=== PATIENT | female | born 1975 | race African-American/Black ===

== ENCOUNTER 2018-06-11 10:03 | Emergency (ER) | payer MEDICAID ==
[~2018-06-11] VITALS: Ht 152.4 cm; Wt 49.9 kg
[2018-06-11 10:20] VITALS: BP 108/78
--- NOTE | 2018-06-11 10:51 | Emergency Room Report ---
History of Present Illness General Chief Complaint: Pain Source: Patient Present Illness HPI This patient c/o pain under right breast today (contrary to triage note.) It is sharp, seems worse with inspiration. There is no n/v, can eat without difficulty , no change in bowels, no fever, no travel, no trauma, no cp, no sob, no (other ) abd pain, no vag d/c, no dysuria. Normal monthly menses but last month heavier than usual. No similar history although patient has been having pain right shoulder for almost a year, is in PT for that, seems to be improving as now she can raise RUE. Patient History Now: No Nursing Documentation-PMH Past Medical History: No History, Except For Hx Diabetes: No - hypothirodism Review of Systems Constitutional: Reports: no symptoms Eye: Reports: no symptoms ENT: Reports: no symptoms Respiratory: Reports: no symptoms Cardiovascular: Reports: no symptoms Gastrointestinal: Reports: no symptoms Genitourinary: Reports: no symptoms Musculoskeletal: Reports: no symptoms Skin: Reports: no symptoms Psychiatric: Reports: no symptoms Neurological: Reports: no symptoms Endocrine: Reports: no symptoms Hematologic/Lymphatic: Reports: no symptoms Allergic: Reports: no symptoms All Other Systems: negative except mentioned in HPI Physical Exam Vital Signs Date Time Temp Pulse Resp B/P (MAP) Pulse Ox O2 Delivery O2 Flow Rate FiO2 06/11/18 10:06 98.4 74 17 110/71 98 Room Air Sp02 EP Interpretation: reviewed, normal General Appearance: normal inspection, well appearing, no apparent distress, alert, GCS 15, non-toxic Head: normocephalic, atraumatic Eyes: bilateral eye normal inspection, bilateral eye PERRL, bilateral eye EOMI ENT: normal ENT inspection, hearing grossly normal, normal pharynx, no angioedema, normal voice, moist mucus membranes Neck: normal inspection, full range of motion, supple, no meningismus, no bony tend Respiratory: normal inspection, lungs clear, normal breath sounds, no rhonchi, no respiratory distress, no retraction, no accessory muscle use, no wheezing Cardiovascular #1: normal inspection, regular rate, rhythm, no edema Gastrointestinal: normal inspection, normal bowel sounds, soft, no mass, non- distended, other - there is no RUQ tenderness at all, no breast tenderness/ mass. there is some mild-moderate right lower/pelvic tenderness Musculoskeletal: gait/station normal, normal range of motion Neurologic: normal inspection, alert, oriented x3, responsive, motor strength/ tone normal Psychiatric: normal inspection, judgement/insight normal, memory normal Suicide Risk Assessment: Suicidal Ideation: No Had intent to initiate attempt: No Pt's plan for suicide attempt: No Has means to complete attempt: No Skin: normal inspection, normal color, no rash, warm/dry Medical Decision Making Diagnostic Impression: Primary Impression: Abdominal pain ER Course There is no ruq abnormality but there is some tenderness right ovarian region. Will check UA, r/o , check US. US abnormality noted. [phone]. They will see patient when she calls. Copy of your test results attached. It is your responsibility to discuss your radiology/lab studies with your doctor. EDs CANNOT diagnose nor manage this finding. Emergency departments do not prescribe medications for chronic conditions. Emergency departments do not prescribe narcotics for chronic conditions. You need to see a primary physician. Look on your Medical card for the doctor/ clinic name and/or phone number to find one. Here are some other options: [facility], [facility], [facility], [facility], [facility]. Last Vital Signs Date Time Temp Pulse Resp B/P (MAP) Pulse Ox O2 Delivery O2 Flow Rate FiO2 06/11/18 10:06 98.4 74 17 110/71 98 Room Air Status: improved Disposition: HOME, SELF-CARE Condition: Stable Patient Instructions: Abdominal Pain, Adult, [id number] Harrison Joshi M.D. Jun 11, 2018 10:51
[2018-06-11 11:20] LABS: APPEARANCE,URINE CLEAR; BILIRUBIN, URINE NEGATIVE (NEGATIVE); COLOR,URINE PALE YELLOW; GLUCOSE, URINE (UA) NEGATIVE (NEGATIVE); KETONES,URINE NEGATIVE (NEGATIVE); LEUKOCYTE ESTERASE ,URINE NEGATIVE (NEGATIVE); NITRITE,URINE NEGATIVE (NEGATIVE); PH,URINE 6 (4.5-8.0); PROTEIN,URINE NEGATIVE (NEGATIVE); UROBILINOGEN,URINE NORMAL MG/DL (0.0-1.0)
--- NOTE | 2018-06-11 12:48 | Diagnostic Imaging Report ---
Indication: 43-year-old female presenting with right lower quadrant pain. Technique: Grayscale and duplex Doppler imaging of the pelvis performed utilizing a transabdominal and endovaginal scan. Comparison: None Findings: On endovaginal ultrasound within the anterior wall of the cervix there is a masslike hypoechoic focus measuring approximately 2.8 x 1.4. The concern would be cervical carcinoma. Further clinical evaluation including colposcopy may be needed. Recommend referral to [facility]. Cervical nabothian cysts are also present. There are multiple small fibroids present within the uterus measuring between 1.3 and 2.5 cm. The endometrium is normal in thickness. There is a thin rim of the intense linear echogenicity, a sign of previous instrumentation. Endometrial thickness is approximately 6 to 7 mm. Uterus measures 8.8 x 8.3 x 4.5 cm. The left ovary is not well seen. The right ovary measures 2.7 x 2 x 1.7 cm and is notable for a dominant cyst measuring about 1.5 cm. There is good dopplerable blood flow within the right ovary. IMPRESSION: Masslike focus anterior wall of the cervix measuring 2.8 x 1.4 cm. The concern is possible cervical carcinoma. Further clinical evaluation is recommended. Left ovary not well evaluated on this examination. Multiple uterine fibroids
[2018-06-11 13:30] VITALS: BP 108/78
== END 2018-06-11 13:30 | disposition home or self-care (01) ==
LOC: EMR 10:40
DX: R10.31 Right lower quadrant pain (principal); M25.511 Pain in right shoulder
CPT/HCPCS: 76830; 76856; 81001; 81025; 99284

== ENCOUNTER 2018-06-18 12:09 | Inpatient (IN) | payer MEDICAID ==
[~2018-06-18] VITALS: Ht 152.4 cm; Wt 49.9 kg
[2018-06-18] MEDS ORDERED: Metoclopramide 10mg/2ml Inj IVP ONE (12:45)
--- NOTE | 2018-06-18 12:46 | Emergency Room Report ---
History of Present Illness General Chief Complaint: General Complaint Source: Patient Present Illness HPI 43-year-old female patient presents ER complaining of nausea, headache, abdominal pain, diarrhea. Reports symptoms present for 3 days, previously seen in ER at [facility] at that time. Denies vomiting. Denies head trauma or injury. Reports no history of migraine. Denies photophobia, phonophobia, dizziness, vertigo. Denies blood in diarrhea. Denies recent travel. states has not taking medication for relief of symptoms. denies fever, chest pain, shortness of breath.denies neck pain. Reports hx of gallbladder dyskinesia. Allergies: Coded Allergies: No Known Allergies (Unverified , 06/18/18) Patient History Past Medical History: see triage record Last Menstrual Period: 06-03 Now: No Reviewed Nursing Documentation: PMH: Agreed; PSxH: Agreed Nursing Documentation-PMH Past Medical History: No Stated History Hx Diabetes: No - hypothirodism Review of Systems All Other Systems: negative except mentioned in HPI Physical Exam Vital Signs Date Time Temp Pulse Resp B/P (MAP) Pulse Ox O2 Delivery O2 Flow Rate FiO2 06/18/18 12:16 97.9 98 18 125/85 98 Room Air Sp02 EP Interpretation: reviewed, normal General Appearance: well appearing, no apparent distress, alert, GCS 15, non- toxic Head: normocephalic, atraumatic Eyes: bilateral eye normal inspection, bilateral eye PERRL ENT: hearing grossly normal, normal pharynx, no angioedema, normal voice, uvula midline, moist mucus membranes Neck: full range of motion Respiratory: lungs clear, normal breath sounds, no rhonchi, no respiratory distress, no accessory muscle use, no wheezing, speaking full sentences Cardiovascular #1: regular rate, rhythm, no edema Gastrointestinal: normal bowel sounds, soft, no mass, non-distended, no guarding, no rebound, tenderness Genitourinary: no CVA tenderness Musculoskeletal: back normal, digits/nails normal, gait/station normal, normal range of motion, non-tender Neurologic: alert, oriented x3, responsive, etcher hand III-XII nml as tested, motor strength/tone normal, SLR negative, sensory intact, cerebellar normal, normal gait, speech normal Skin: no rash Medical Decision Making PA Attestation Dr. Schmidt is my supervising Physician whom patient management has been discussed with. Diagnostic Impression: Primary Impression: Intractable pain Additional Impressions: Yeast infection UTI (urinary tract infection) ER Course Pt presents to ED c/o headache, nausea, abdominal pain, diarrhea. DDX considered but are not limited to migraine, cluster [place], tension [place], meningitis, ICH, UTI, cholecystitis, appendicitis, SBO, colitis. Negative kernig, negative brudzinski, paient afebrile, low suspicion for meningitis. VITAL SIGNS are WNL, patient is afebrile ER COURSE provide with Reglan, Benadryl, Zofran for headache symptoms. CBC and CMP unremarkable UA shows likely infection and yeast, will provide Fluconazole in the ER and Rocephin for UTI. Lipase WNL CT abdomen shows no acute findings, urine fibroids noted, previously seen on ultrasound Patient reports [place] symptoms improved still complaining of abdominal pain. discussed patient with Dr. Schmidt, will admit patient for intractable pain. Admitted to Dr. Fink - Please note that this Emergency Department Report was dictated using [employer] operator technology software, occasionally this can lead to erroneous entry secondary to interpretation by the dictation equipment. Labs Test 06/18/18 12:50 06/18/18 13:26 White Blood Count 5.5 K/UL (4.8-10.8) Red Blood Count 4.40 M/UL (4.20-5.40) Hemoglobin 13.9 G/DL (12.0-16.0) Hematocrit 39.9 % (37.0-47.0) Mean Corpuscular Volume 91 FL (80-99) Mean Corpuscular Hemoglobin 31.6 PG (27.0-31.0) Mean Corpuscular Hemoglobin Concent 34.8 G/DL (32.0-36.0) Red Cell Distribution Width 10.3 % (11.6-14.8) Platelet Count 289 K/UL (150-450) Mean Platelet Volume 7.2 FL (6.5-10.1) Neutrophils (%) (Auto) 58.0 % (45.0-75.0) Lymphocytes (%) (Auto) 30.9 % (20.0-45.0) Monocytes (%) (Auto) 8.9 % (1.0-10.0) Eosinophils (%) (Auto) 1.5 % (0.0-3.0) Basophils (%) (Auto) 0.8 % (0.0-2.0) Sodium Level 138 MMOL/L (136-145) Potassium Level 3.4 MMOL/L (3.5-5.1) Chloride Level 105 MMOL/L (98-107) Carbon Dioxide Level 24 MMOL/L (21-32) Anion Gap 9 mmol/L (5-15) Blood Urea Nitrogen 12 mg/dL (7-18) Creatinine 0.7 MG/DL (0.55-1.30) Estimat Glomerular Filtration Rate > 60 mL/min (>60) Glucose Level 97 MG/DL (74-106) Calcium Level 8.9 MG/DL (8.5-10.1) Total Bilirubin 0.3 MG/DL (0.2-1.0) Aspartate Amino Transf (AST/SGOT) 14 U/L (15-37) Alanine Aminotransferase (ALT/SGPT) 20 U/L (12-78) Alkaline Phosphatase 41 U/L (46-116) Total Protein 8.2 G/DL (6.4-8.2) Albumin 3.7 G/DL (3.4-5.0) Globulin 4.5 g/dL Albumin/Globulin Ratio 0.8 (1.0-2.7) Lipase 208 U/L (73-393) Urine Color Pale yellow Urine Appearance Clear Urine pH 6.5 (4.5-8.0) Urine Specific [place] 1.015 (1.005-1.035) Urine Protein Negative (NEGATIVE) Urine Glucose (UA) Negative (NEGATIVE) Urine Ketones Negative (NEGATIVE) Urine Blood 1+ (NEGATIVE) Urine Nitrite Negative (NEGATIVE) Urine Bilirubin Negative (NEGATIVE) Urine Urobilinogen Normal MG/DL (0.0-1.0) Urine Leukocyte Esterase 2+ (NEGATIVE) Urine RBC 2-4 /HPF (0 - 2) Urine WBC 10-15 /HPF (0 - 2) Urine Squamous Epithelial Cells Moderate /LPF (NONE/OCC) Urine Bacteria Few /HPF (NONE) Urine Yeast Occasional /HPF (NONE) Urine HCG, Qualitative Negative (NEGATIVE) CT/MRI/US Diagnostic Results CT/MRI/US Diagnostic Results : Imaging Test Ordered: CT abdomen pelvis Impression no definite acute abnormality Enlarged fibroid uterus Trace pelvic fluid, most likely physiologic Last Vital Signs Date Time Temp Pulse Resp B/P (MAP) Pulse Ox O2 Delivery O2 Flow Rate FiO2 06/18/18 12:16 97.9 98 18 125/85 98 Room Air Disposition: ADMITTED INPATIENT Condition: Stable Reyes Emerson Jun 18, 2018 12:46
[2018-06-18 13:12] LABS: BASOPHILS % (AUTO) 0.8 % (0.0-2.0); EOSINOPHILS % (AUTO) 1.5 % (0.0-3.0); HEMATOCRIT 39.9 % (37.0-47.0); HEMOGLOBIN 13.9 G/DL (12.0-16.0); LYMPHOCYTES % (AUTO) 30.9 % (20.0-45.0); MEAN CORPUSCULAR VOLUME 91 FL (80-99); MONOCYTES % (AUTO) 8.9 % (1.0-10.0); PLATELET COUNT 289 K/UL (150-450); RED CELL DISTRIBUTION WIDTH 10.3 % (11.6-14.8); WHITE BLOOD COUNT 5.5 K/UL (4.8-10.8)
[2018-06-18 13:24] LABS: ANION GAP 9 mmol/L (5-15); BLOOD UREA NITROGEN 12 mg/dL (7-18); CALCIUM 8.9 MG/DL (8.5-10.1); CARBON DIOXIDE 24 MMOL/L (21-32); CHLORIDE 105 MMOL/L (98-107); CREATININE 0.7 MG/DL (0.55-1.30); POTASSIUM 3.4 MMOL/L (3.5-5.1); SODIUM 138 MMOL/L (136-145)
[2018-06-18 13:28] LABS: ALANINE AMINOTRANSFERASE 20 U/L (12-78); ALBUMIN 3.7 G/DL (3.4-5.0); ALBUMIN/GLOBULIN RATIO 0.8 (1.0-2.7); ALKALINE PHOSPHATASE 41 U/L (46-116); ASPARTATE AMINO TRANSFERASE 14 U/L (15-37); BILIRUBIN,TOTAL 0.3 MG/DL (0.2-1.0)
[2018-06-18 13:55] LABS: APPEARANCE,URINE CLEAR; BILIRUBIN, URINE NEGATIVE (NEGATIVE); COLOR,URINE PALE YELLOW; GLUCOSE, URINE (UA) NEGATIVE (NEGATIVE); KETONES,URINE NEGATIVE (NEGATIVE); LEUKOCYTE ESTERASE ,URINE 2+ (NEGATIVE); NITRITE,URINE NEGATIVE (NEGATIVE); PH,URINE 6.5 (4.5-8.0); PROTEIN,URINE NEGATIVE (NEGATIVE); UROBILINOGEN,URINE NORMAL MG/DL (0.0-1.0)
[2018-06-18 14:43] VITALS: BP 125/85
[2018-06-18] MEDS ORDERED: Fluconazole 100mg tab ORAL ONE (14:45)
--- NOTE | 2018-06-18 14:57 | Diagnostic Imaging Report ---
Indication: Nausea, headache, abdominal pain, diarrhea for 3 days Technique: Spiral acquisitions obtained through the abdomen and pelvis. No oral contrast utilized, per emergency room physician request No IV contrast utilized, per referring physician request. Multiplanar reconstructions were generated. Total dose length product 564.61 mGycm. CTDIvol(s) 11.29 mGy. Dose reduction achieved using automated exposure control Comparison: None Findings: Lack of enteric contrast limits assessment of the GI tract. The appendix is not definitely identified. However, no findings to suggest acute appendicitis are evident. There is colonic diverticulosis. No evidence of diverticulitis. No small bowel distention. Distal esophagus, stomach, duodenum are unremarkable. Trace fluid is seen within the pelvic cul-de-sac. No other intraluminal gas or fluid is demonstrated. Lack of IV contrast limits assessment of the solid organs. The liver, gallbladder, bile ducts, pancreas, spleen, adrenals, kidneys are unremarkable. No retroperitoneal or mesenteric mass or adenopathy. The uterus is enlarged and somewhat heterogeneous, demonstrates several exophytic masses. No adnexal mass demonstrated. The included lung bases are clear. The bones are unremarkable. Impression: Limited assessment of the GI tract, due to lack of enteric contrast administration No definite acute abnormality Trace pelvic fluid, most likely physiologic Enlarged fibroid uterus The CT scanner at [facility] is accredited by the [employer] and the scans are performed using protocols designed to limit radiation exposure to as low as reasonably achievable to attain images of sufficient resolution adequate for diagnostic evaluation.
[2018-06-18] MEDS ORDERED: cefTRIAXone 1 GM in NS 55 ML IVPB ONE (15:15)
[2018-06-18] MEDS ORDERED: GABAPENTIN100 MG ORAL (15:41)
[2018-06-18] MEDS ORDERED: LEVOTHYROXINE75 MCG ORAL (15:41)
[2018-06-18] MEDS: Enoxaparin 40mg Inj SUBQ SCH (17:00)
--- NOTE | 2018-06-18 17:10 | Consultation ---
Consult Note Consult Note # [id number] Galen Cunningham MD Jun 18, 2018 17:10
[2018-06-18] MEDS ORDERED: Isovue-300 100ml vial INJ PRN (17:15)
[2018-06-18 20:00] VITALS: BP 104/64
--- NOTE | 2018-06-18 20:00 | History and Physical Report ---
DATE OF ADMISSION: 06/18/2018 REASON FOR ADMISSION: Abdominal pain. HISTORY OF PRESENT ILLNESS: The patient is a 43-year-old female who presented to the emergency room complaining of three days of nausea, no vomiting, but with diarrhea. The patient says that her last bout of abdominal pain was approximately two years ago. She had been on Ursodiol and had discontinued the medication approximately one year ago. She says that she had a history of what was called gallbladder dyskinesia. This abdominal pain is the worst it has been in approximately two years. No chest pain or shortness of breath. ALLERGIES: No known drug allergies. PAST MEDICAL HISTORY: 1. Gallbladder dyskinesia. 2. Hypothyroidism. 3. Neuropathy. FAMILY HISTORY: Positive for hypertension. PAST SURGICAL HISTORY: Noncontributory. REVIEW OF SYSTEMS: NEUROLOGIC: The patient denies headache, change in vision, syncope, or presyncopal episodes. CARDIOVASCULAR: No current chest pain, palpitations, or angina. PULMONARY: No difficulty breathing, productive cough, or sputum. GASTROINTESTINAL/GENITOURINARY: The patient is having nausea, no vomiting, but diarrhea. ENDOCRINOLOGY: No night sweats, fevers, or chills. MUSCULOSKELETAL: The patient is feeling weak, tired and fatigued. LABORATORY DATA: Labs dated 06/18/2018, white cell count 5.5, hemoglobin 13.9, and platelet count 289,000. Potassium 3.4, sodium 138, and creatinine 0.7. Total bilirubin 0.3. AST and ALT of 14 and 20 respectively. Lipase 208. PHYSICAL EXAMINATION: VITAL SIGNS: Blood pressure 125/85, 98% oxygen saturation on room air, pulse 95, and temperature 97.9. GENERAL: The patient is awake and alert, not otherwise in distress. HEENT: Extraocular muscles intact. No lymphadenopathy noted. CARDIOVASCULAR: S1, S2. No rubs or gallops. PULMONARY: Clear to auscultation bilaterally. No rales, rhonchi or wheezes. ABDOMEN: Mild tenderness. Good bowel sounds. EXTREMITIES: No edema. ASSESSMENT AND PLAN: 1. Abdominal pain with a history of gallbladder dyskinesia. At this time, LFTs are normal. The patient will be NPO and IV fluids started. Bowel rest with evaluation with Gastroenterology and General surgery. 2. Hypothyroidism. We will continue Synthroid. 3. Neuropathy. We will continue gabapentin. 4. Deep venous thrombosis prophylaxis with Lovenox subcutaneous. 5. Patient's last menstrual period was 06/03/2018. We will check a urine test. 6. Urinary tract infection with yeast. Continue Rocephin and Diflucan. Dr. Cunningham, Infectious Disease to further manage. Tenelham Tovar MD DR: DANNIE JOB#: [id number] CC:
[2018-06-18] MEDS: Morphine Sulfate 2mg/ml Inj IVP PRN (20:18)
[2018-06-19] VITALS: BP 96/54
[2018-06-19 04:00] VITALS: BP 97/56
--- NOTE | 2018-06-19 04:45 | Consultation ---
DATE OF CONSULTATION: 06/18/2018 INFECTIOUS DISEASES CONSULTATION CONSULTING PHYSICIAN: Galen Cunningham M.D. REFERRING PHYSICIAN: Ten Tovar M.D. REASON FOR CONSULTATION: Evaluation of the patient for probable intraabdominal sepsis/colitis and antibiotic management. HISTORY OF PRESENT ILLNESS: The patient is a 43-year-old female with past medical history significant for right shoulder pain who was admitted to this medical center with chief complaint of abdominal pain x3 days associated with nausea and history of chills. CT scan without contrast did not show any significant findings. Infectious Disease consultation has been requested for further evaluation of the patient and antibiotic management. PAST MEDICAL HISTORY: Significant for: 1. Hypothyroidism. 2. Right shoulder pain. PAST SURGICAL HISTORY: Significant for appendectomy. ALLERGIES: No known drug allergies. SOCIAL HISTORY: Negative for alcohol, drug abuse, or smoking. FAMILY HISTORY: Not contributing. REVIEW OF SYSTEMS: A 10-point review was done.HEENT: No recent change in vision or hearing. PULMONARY: No cough or shortness of breath. CARDIOVASCULAR: No chest or palpitations. GASTROINTESTINAL/ABDOMEN: The patient has abdominal pain, mostly in the left lower quadrant. GENITOURINARY: No dysuria. No vaginal discharge. EXTREMITIES: No cyanosis or pain. PHYSICAL EXAMINATION: VITAL SIGNS: Temperature 97.9 degrees, blood pressure 124/85, pulse 86, and respiratory rate 18. HEENT: No pale conjunctivae. No icterus. NECK: No lymphadenopathy. CHEST: Clear. HEART: S1 and S2. ABDOMEN: The patient has mild to moderate abdominal pain in all four quadrants, mostly on the right lower quadrant. EXTREMITIES: No cyanosis. NEUROLOGIC: Awake and alert. LABORATORY AND DIAGNOSTIC DATA: Influenza screen negative. White blood cells 5.5, hemoglobin 13.9, and platelets 289. UA showed 10 to 15 white blood cells. The patient has yeast. BUN 12 and creatinine 0.7. AST, ALT, and alkaline phosphatase are unremarkable. CT of the abdomen showed no definite acute abnormality. ASSESSMENT: 1. Abdominal pain x3 days [employer] (prior to the admission), ? etiology , rule out probable bacteremia. 2. Pyuria, no dysuria. UTI is less likely. PLAN: 1. We will start the patient on IV Rocephin and Flagyl. 2. Monitor urine culture. 3. Monitor blood culture. 4. CT scan of the abdomen with IV/oral contrast for better evaluation. 5. Monitor CBC/CMP. Thank you, Dr. Tovar, for allowing me to participate in the care of this patient. I will follow the patient with you during this hospitalization. Galen Cunningham M.D. DR: VICKI JOB#: [id number] CC:
[2018-06-19 06:44] LABS: ANION GAP 7 mmol/L (5-15); BLOOD UREA NITROGEN 9 mg/dL (7-18); CALCIUM 8.3 MG/DL (8.5-10.1); CARBON DIOXIDE 26 MMOL/L (21-32); CHLORIDE 107 MMOL/L (98-107); CREATININE 0.8 MG/DL (0.55-1.30); POTASSIUM 3.9 MMOL/L (3.5-5.1); SODIUM 140 MMOL/L (136-145)
[2018-06-19 07:10] LABS: BASOPHILS % (AUTO) 0.7 % (0.0-2.0); EOSINOPHILS % (AUTO) 1.6 % (0.0-3.0); HEMATOCRIT 36.8 % (37.0-47.0); HEMOGLOBIN 12.9 G/DL (12.0-16.0); LYMPHOCYTES % (AUTO) 32.9 % (20.0-45.0); MEAN CORPUSCULAR VOLUME 92 FL (80-99); MONOCYTES % (AUTO) 9.4 % (1.0-10.0); NEUTROPHILS % (AUTO) 55.4 % (45.0-75.0); PLATELET COUNT 261 K/UL (150-450); RED BLOOD COUNT 4.01 M/UL (4.20-5.40); RED CELL DISTRIBUTION WIDTH 10.7 % (11.6-14.8); WHITE BLOOD COUNT 6.7 K/UL (4.8-10.8)
[2018-06-19 08:00] VITALS: BP 94/60
--- NOTE | 2018-06-19 08:41 | Nephrology Progress Note ---
Assessment/Plan Assessment/Plan A/P 1) Abd Pain- much improved - appre ciate GI and Gen surgery evaluation - poss gastroenteritis, CT ABD/HIDA - DC patient tomorrow if all tests negative and patient clinically improved 2. UTI- Abx per ID 3. Hypothyroid- synthroid 4. DVT Prophylaxsis- lovenox Subjective Date patient seen: Jun 19, 2018 Time patient seen: 08:39 ROS Limited/Unobtainable: No Gastrointestinal/Abdominal: Reports: abdominal pain Allergies: Coded Allergies: No Known Allergies (Unverified , 06/18/18) All Systems: reviewed and negative except above Subjective Patient feeling much better. Abdominal pain almost resolved Objective Last 24 Hour Vital Signs Date Time Temp Pulse Resp B/P (MAP) Pulse Ox O2 Delivery O2 Flow Rate FiO2 06/19/18 04:00 98.4 62 16 97/56 (70) 98 06/19/18 00:00 98.6 64 20 96/54 (68) 95 06/18/18 21:00 Room Air 06/18/18 20:00 99.2 64 18 104/64 (77) 96 06/18/18 16:30 Room Air 06/18/18 16:26 97.9 95 18 125/85 98 Room Air 06/18/18 14:43 97.9 95 18 125/85 98 Room Air 06/18/18 14:43 98 18 Room Air 06/18/18 12:16 97.9 98 18 125/85 98 Room Air Intake and Output 06/18/18 06/19/18 19:00 07:00 Intake Total 195 ml 775 ml Balance 195 ml 775 ml Intake Oral 120 ml IV Total 75 ml 775 ml # Voids 1 2 Laboratory Tests 06/18/18 12:50: White Blood Count 5.5, Red Blood Count 4.40, Hemoglobin 13.9, Hematocrit 39.9, Mean Corpuscular Volume 91, Mean Corpuscular Hemoglobin 31.6H, Mean Corpuscular Hemoglobin Concent 34.8, Red Cell Distribution Width 10.3L, Platelet Count 289, Mean Platelet Volume 7.2, Neutrophils (%) (Auto) 58.0, Lymphocytes (%) (Auto) 30.9, Monocytes (%) (Auto) 8.9, Eosinophils (%) (Auto) 1.5, Basophils (%) (Auto ) 0.8, Sodium Level 138, Potassium Level 3.4L, Chloride Level 105, Carbon Dioxide Level 24, Anion Gap 9, Blood Urea Nitrogen 12, Creatinine 0.7, Estimat Glomerular Filtration Rate > 60, Glucose Level 97, Calcium Level 8.9, Total Bilirubin 0.3, Aspartate Amino Transf (AST/SGOT) 14L, Alanine Aminotransferase ( ALT/SGPT) 20, Alkaline Phosphatase 41L, Total Protein 8.2, Albumin 3.7, Globulin 4.5, Albumin/Globulin Ratio 0.8L, Lipase 208 06/18/18 13:26: Urine Color Pale yellow, Urine Appearance Clear, Urine pH 6.5, Urine Specific [place] 1.015, Urine Protein Negative, Urine Glucose (UA) Negative, Urine Ketones Negative, Urine Blood 1+H, Urine Nitrite Negative, Urine Bilirubin Negative, Urine Urobilinogen Normal, Urine Leukocyte Esterase 2+H, Urine RBC 2- 4H, Urine WBC 10-15H, Urine Squamous Epithelial Cells ModerateH, Urine Bacteria Few, Urine Yeast OccasionalH, Urine HCG, Qualitative Negative 06/19/18 05:15: White Blood Count 6.7, Red Blood Count 4.01L, Hemoglobin 12.9, Hematocrit 36.8L , Mean Corpuscular Volume 92, Mean Corpuscular Hemoglobin 32.3H, Mean Corpuscular Hemoglobin Concent 35.1, Red Cell Distribution Width 10.7L, Platelet Count 261, Mean Platelet Volume 7.7, Neutrophils (%) (Auto) 55.4, Lymphocytes (%) (Auto) 32.9, Monocytes (%) (Auto) 9.4, Eosinophils (%) (Auto) 1.6, Basophils (%) (Auto) 0.7, Sodium Level 140, Potassium Level 3.9, Chloride Level 107, Carbon Dioxide Level 26, Anion Gap 7, Blood Urea Nitrogen 9, Creatinine 0.8, Estimat Glomerular Filtration Rate > 60, Glucose Level 89, Calcium Level 8.3L Height (Feet): 5 Height (Inches): 0.00 Weight (Pounds): 110 General Appearance: WD/WN, no apparent distress EENT: normal ENT inspection Neck: normal alignment, supple Cardiovascular: normal rate, regular rhythm Respiratory/Chest: lungs clear, normal breath sounds Abdomen: non tender, soft Edema: no edema noted Arm (L), no edema noted Arm (R), no edema noted Leg (L), no edema noted Leg (R), no edema noted Pedal (L), no edema noted Pedal (R), no edema noted Generalized Ten Tovar MD Jun 19, 2018 08:41
[2018-06-19] MEDS: cefTRIAXone 1 GM in D5W 55 ML IVPB SCH (09:06)
--- NOTE | 2018-06-19 11:19 | Infectious Diseases Prog Note ---
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 UTI is less likely GB dyskinesia Hypothyroidism. Right shoulder pain ( on Neurontin) Hx of appendectomy PLAN: cont pt on IV Rocephin and Flagyl d# 2 Monitor urine culture Monitor blood culture CT scan of the abdomen with IV/oral contrast for better evaluation Monitor CBC/CMP. Subjective Allergies: Coded Allergies: No Known Allergies (Unverified , 06/18/18) Subjective comfortable Objective Vital Signs Last 24 Hour Vital Signs Date Time Temp Pulse Resp B/P (MAP) Pulse Ox O2 Delivery O2 Flow Rate FiO2 06/19/18 09:00 Room Air 06/19/18 08:00 98.1 60 20 94/60 (71) 98 06/19/18 04:00 98.4 62 16 97/56 (70) 98 06/19/18 00:00 98.6 64 20 96/54 (68) 95 06/18/18 21:00 Room Air 06/18/18 20:00 99.2 64 18 104/64 (77) 96 06/18/18 16:30 Room Air 06/18/18 16:26 97.9 95 18 125/85 98 Room Air 06/18/18 14:43 97.9 95 18 125/85 98 Room Air 06/18/18 14:43 98 18 Room Air 06/18/18 12:16 97.9 98 18 125/85 98 Room Air Height (Feet): 5 Height (Inches): 0.00 Weight (Pounds): 110 HEENT: anicteric Respiratory/Chest: normal breath sounds Cardiovascular: normal peripheral pulses Abdomen: normal bowel sounds Microbiology Date/Time Source Procedure Growth Status 06/18/18 14:30 Nasal Nares Influenza Types A,B Antigen (JOSH) - Final Complete 06/18/18 13:26 Urine,Clean Catch Urine Culture - Preliminary Resulted Laboratory Tests Test 06/18/18 12:50 06/18/18 13:26 06/19/18 05:15 White Blood Count 5.5 K/UL (4.8-10.8) 6.7 K/UL (4.8-10.8) Red Blood Count 4.40 M/UL (4.20-5.40) 4.01 M/UL (4.20-5.40) L Hemoglobin 13.9 G/DL (12.0-16.0) 12.9 G/DL (12.0-16.0) Hematocrit 39.9 % (37.0-47.0) 36.8 % (37.0-47.0) L Mean Corpuscular Volume 91 FL (80-99) 92 FL (80-99) Mean Corpuscular Hemoglobin 31.6 PG (27.0-31.0) H 32.3 PG (27.0-31.0) H Mean Corpuscular Hemoglobin Concent 34.8 G/DL (32.0-36.0) 35.1 G/DL (32.0-36.0) Red Cell Distribution Width 10.3 % (11.6-14.8) L 10.7 % (11.6-14.8) L Platelet Count 289 K/UL (150-450) 261 K/UL (150-450) Mean Platelet Volume 7.2 FL (6.5-10.1) 7.7 FL (6.5-10.1) Neutrophils (%) (Auto) 58.0 % (45.0-75.0) 55.4 % (45.0-75.0) Lymphocytes (%) (Auto) 30.9 % (20.0-45.0) 32.9 % (20.0-45.0) Monocytes (%) (Auto) 8.9 % (1.0-10.0) 9.4 % (1.0-10.0) Eosinophils (%) (Auto) 1.5 % (0.0-3.0) 1.6 % (0.0-3.0) Basophils (%) (Auto) 0.8 % (0.0-2.0) 0.7 % (0.0-2.0) Sodium Level 138 MMOL/L (136-145) 140 MMOL/L (136-145) Potassium Level 3.4 MMOL/L (3.5-5.1) L 3.9 MMOL/L (3.5-5.1) Chloride Level 105 MMOL/L (98-107) 107 MMOL/L (98-107) Carbon Dioxide Level 24 MMOL/L (21-32) 26 MMOL/L (21-32) Anion Gap 9 mmol/L (5-15) 7 mmol/L (5-15) Blood Urea Nitrogen 12 mg/dL (7-18) 9 mg/dL (7-18) Creatinine 0.7 MG/DL (0.55-1.30) 0.8 MG/DL (0.55-1.30) Estimat Glomerular Filtration Rate > 60 mL/min (>60) > 60 mL/min (>60) Glucose Level 97 MG/DL (74-106) 89 MG/DL (74-106) Calcium Level 8.9 MG/DL (8.5-10.1) 8.3 MG/DL (8.5-10.1) L Total Bilirubin 0.3 MG/DL (0.2-1.0) Aspartate Amino Transf (AST/SGOT) 14 U/L (15-37) L Alanine Aminotransferase (ALT/SGPT) 20 U/L (12-78) Alkaline Phosphatase 41 U/L (46-116) L Total Protein 8.2 G/DL (6.4-8.2) Albumin 3.7 G/DL (3.4-5.0) Globulin 4.5 g/dL Albumin/Globulin Ratio 0.8 (1.0-2.7) L Lipase 208 U/L (73-393) Urine Color Pale yellow Urine Appearance Clear Urine pH 6.5 (4.5-8.0) Urine Specific [place] 1.015 (1.005-1.035) Urine Protein Negative (NEGATIVE) Urine Glucose (UA) Negative (NEGATIVE) Urine Ketones Negative (NEGATIVE) Urine Blood 1+ (NEGATIVE) H Urine Nitrite Negative (NEGATIVE) Urine Bilirubin Negative (NEGATIVE) Urine Urobilinogen Normal MG/DL (0.0-1.0) Urine Leukocyte Esterase 2+ (NEGATIVE) H Urine RBC 2-4 /HPF (0 - 2) H Urine WBC 10-15 /HPF (0 - 2) H Urine Squamous Epithelial Cells Moderate /LPF (NONE/OCC) H Urine Bacteria Few /HPF (NONE) Urine Yeast Occasional /HPF (NONE) H Urine HCG, Qualitative Negative (NEGATIVE) Current Medications Medications (Trade) Dose Ordered Sig/Ashlyn Route PRN Reason Start Time Stop Time Status Last Admin Dose Admin Acetaminophen (Tylenol) 650 mg Q4H PRN ORAL Mild Pain (Pain Scale 1-3) 06/18/18 16:15 07/18/18 16:14 Barium Sulfate (Readi-Cat 2) 450 ml NOW PRN ORAL Radiology Procedure 06/18/18 17:15 06/20/18 17:02 Ceftriaxone Sodium 1 gm/ Dextrose 55 ml @ 110 mls/hr DAILY IVPB 06/19/18 09:00 06/26/18 08:59 06/19/18 09:06 Dextrose (Dextrose 50%) 25 ml Q30M PRN IV Hypoglycemia 06/18/18 16:15 07/18/18 16:14 Dextrose (Dextrose 50%) 50 ml Q30M PRN IV Hypoglycemia 06/18/18 16:15 07/18/18 16:14 Dextrose/ Electrolytes 1,000 ml @ 75 mls/hr [id number] IV 06/18/18 17:00 07/18/18 16:59 06/19/18 06:08 Enoxaparin Sodium (Lovenox) 40 mg Q24H SUBQ 06/18/18 17:00 07/18/18 16:59 Famotidine (Pepcid) 20 mg BID ORAL 06/18/18 18:00 07/18/18 17:59 06/19/18 09:06 Gabapentin (Neurontin) 100 mg THREE TIMES A DAY ORAL 06/18/18 18:00 07/18/18 17:59 06/19/18 09:06 Iopamidol (Isovue-300 100ml) 100 ml NOW PRN INJ Radiology Procedure 06/18/18 17:15 06/20/18 17:14 Levothyroxine Sodium (Synthroid) 75 mcg DAILY@0630 ORAL 06/19/18 06:30 07/19/18 06:29 06/19/18 06:08 Metronidazole 100 ml @ 100 mls/hr Q8H IVPB 06/18/18 18:00 06/25/18 17:59 06/19/18 10:34 Morphine Sulfate (Morphine Sulfate) 0.5 mg Q6H PRN IVP For Pain 06/18/18 17:00 06/25/18 16:59 06/18/18 20:18 Morphine Sulfate (Morphine Sulfate) 2 mg ONCE IVP 06/19/18 13:00 06/19/18 14:00 Ondansetron HCl (Zofran) 4 mg Q6H PRN IVP Nausea & Vomiting 06/18/18 16:15 07/18/18 16:14 Galen Cunningham MD Jun 19, 2018 11:19
--- NOTE | 2018-06-19 11:38 | Diagnostic Imaging Report ---
Clinical Indication: Abdominal pain for 3 days Technique: Patient given oral contrast. IV administration nonionic contrast. Venous phase spiral acquisition obtained through the abdomen and pelvis. Multiplanar reconstructions were generated. Total dose length product 656.93 mGycm. CTDIvol(s) 13.45 mGy. Dose reduction achieved using automated exposure control Comparison: Noncontrast study dated 06/18/2018 Findings: The appendix is not visualized. There is minimal inflammatory change of the fat caudad to the cecum. There is trace free pelvic fluid again demonstrated. There is minimal focal thickening of the fascia adjacent to the distal descending colon which is not evident on the previous exam. No definite associated diverticula are seen, however. There is questionably a small diverticulum of the transverse colon. Contrast is seen throughout the entirety of the small bowel and is far distally in the colon as the proximal transverse colon. No small bowel wall thickening. No colon wall thickening. No free intraperitoneal gas. Distal esophagus, stomach, duodenum are all unremarkable. The liver demonstrates a small focus of fatty change in the usual location adjacent to the falciform ligament, is otherwise unremarkable. The gallbladder, bile ducts, pancreas, spleen, adrenals, right kidney are unremarkable. Left kidney demonstrates a subcentimeter low-attenuation lesion which is too small to characterize. There is a small accessory splenule incidentally noted The uterus demonstrates at least 2 exophytic masses consistent with fibroids. There is evidence of a cervical nabothian cyst as well as slight fullness to the cervix. The ovaries are unremarkable. No pelvic mass or adenopathy otherwise. The bladder is distended, no wall thickening. The included lung bases demonstrate posterior dependent atelectatic changes. The bones are essentially unremarkable except for minimal degenerative spondylosis changes. Impression: Minimal very slight subtle thickening of the fascia adjacent to the distal descending colon, not evident on previous day's exam. Significance uncertain if real, could indicate a focus of early acute diverticulitis secondary to occult diverticular disease, versus focal colitis Nonvisualized appendix. Per the electronic medical record, patient has history of appendectomy. Very slight thickening of the fat adjacent to the cecum probably represents some postsurgical scarring related to such; acute inflammation secondary to adjacent cecal disease and less likely but possible No acute process otherwise A few scattered colonic diverticula are noted elsewhere in the colon Prominent cervix. Prior ultrasound report of 06/11/2018 describes possible cervical mass. Gynecological evaluation recommended if not already undertaken Fibroid uterus, also previously reported Free pelvic cul-de-sac fluid, most likely physiologic, also previously described Subcentimeter renal low-attenuation left renal lesions, too small to characterize, most likely benign simple cysts. No further follow-up necessary Other incidental findings as noted, including small focus of focal fatty infiltration in the liver, dependent posterior pulmonary atelectatic changes, cervical nabothian cysts, accessory splenule The CT scanner at [facility] is accredited by the [employer] and the scans are performed using protocols designed to limit radiation exposure to as low as reasonably achievable to attain images of sufficient resolution adequate for diagnostic evaluation.
[2018-06-19 12:00] VITALS: BP 97/65
[2018-06-19] MEDS ORDERED: Morphine Sulfate 2mg/ml Inj IVP SCH (13:00)
--- NOTE | 2018-06-19 14:21 | Consultation ---
History of Present Illness General Date patient seen: Jun 19, 2018 Chief Complaint: General Complaint Reason for Consultation: abdominal pain Present Illness HPI 43 year old female with history of prior open appendectomy presented with abdominal pain, nausea, emesis, diarrhea for a 3-4 days. States pain happens intermittently and is cramping generalized abdominal pain. As pain worsened came to ED for evaluation. Was discharged and presented again within 24hrs with similar complaints. In ED CT without significant findings. Labs okay. Surgery called to evaluate. Patient seen, chart reviewed, patient examined. States abdominal pain slowly improving since admission. currently no n/v/f/c. hx biliary dyskinesia Allergies: Coded Allergies: No Known Allergies (Unverified , 06/18/18) Medication History Scheduled Gabapentin* (Gabapentin*), 100 MG ORAL THREE TIMES A DAY, (Reported) Levothyroxine Sodium* (Levothyroxine Sodium*), 100 MCG ORAL DAILY, (Reported) Patient History History Provided By: Patient, Medical Record, PMD Healthcare decision maker Resuscitation status Full Code Advanced Directive on File Past Medical/Surgical History Past Medical/Surgical History: (1) Intractable pain (2) UTI (urinary tract infection) (3) Yeast infection Review of Systems All Other Systems: negative except mentioned in HPI Physical Exam General Appearance: no apparent distress, alert Lines, tubes and drains: peripheral HEENT: normocephalic, mucous membranes moist Neck: normal inspection Respiratory/Chest: lungs clear, normal breath sounds, no respiratory distress, no accessory muscle use Cardiovascular/Chest: normal rate, regular rhythm Abdomen: normal bowel sounds, soft, no organomegaly, no mass, tender, other - prior open appy scar well healed Extremities: normal inspection Skin Exam: warm/dry Neurologic: alert, oriented x 3 Last 24 Hour Vital Signs Date Time Temp Pulse Resp B/P (MAP) Pulse Ox O2 Delivery O2 Flow Rate FiO2 06/19/18 12:00 98.5 66 20 97/65 (76) 96 06/19/18 09:00 Room Air 06/19/18 08:00 98.1 60 20 94/60 (71) 98 06/19/18 04:00 98.4 62 16 97/56 (70) 98 06/19/18 00:00 98.6 64 20 96/54 (68) 95 06/18/18 21:00 Room Air 06/18/18 20:00 99.2 64 18 104/64 (77) 96 06/18/18 16:30 Room Air 06/18/18 16:26 97.9 95 18 125/85 98 Room Air 06/18/18 14:43 97.9 95 18 125/85 98 Room Air 06/18/18 14:43 98 18 Room Air Intake and Output 06/18/18 06/19/18 19:00 07:00 Intake Total 195 ml 775 ml Balance 195 ml 775 ml Intake Oral 120 ml IV Total 75 ml 775 ml # Voids 1 2 Laboratory Tests Test 06/19/18 05:15 White Blood Count 6.7 K/UL (4.8-10.8) Red Blood Count 4.01 M/UL (4.20-5.40) L Hemoglobin 12.9 G/DL (12.0-16.0) Hematocrit 36.8 % (37.0-47.0) L Mean Corpuscular Volume 92 FL (80-99) Mean Corpuscular Hemoglobin 32.3 PG (27.0-31.0) H Mean Corpuscular Hemoglobin Concent 35.1 G/DL (32.0-36.0) Red Cell Distribution Width 10.7 % (11.6-14.8) L Platelet Count 261 K/UL (150-450) Mean Platelet Volume 7.7 FL (6.5-10.1) Neutrophils (%) (Auto) 55.4 % (45.0-75.0) Lymphocytes (%) (Auto) 32.9 % (20.0-45.0) Monocytes (%) (Auto) 9.4 % (1.0-10.0) Eosinophils (%) (Auto) 1.6 % (0.0-3.0) Basophils (%) (Auto) 0.7 % (0.0-2.0) Sodium Level 140 MMOL/L (136-145) Potassium Level 3.9 MMOL/L (3.5-5.1) Chloride Level 107 MMOL/L (98-107) Carbon Dioxide Level 26 MMOL/L (21-32) Anion Gap 7 mmol/L (5-15) Blood Urea Nitrogen 9 mg/dL (7-18) Creatinine 0.8 MG/DL (0.55-1.30) Estimat Glomerular Filtration Rate > 60 mL/min (>60) Glucose Level 89 MG/DL (74-106) Calcium Level 8.3 MG/DL (8.5-10.1) L Microbiology Date/Time Source Procedure Growth Status 06/18/18 14:30 Nasal Nares Influenza Types A,B Antigen (JOSH) - Final Complete Height (Feet): 5 Height (Inches): 0.00 Weight (Pounds): 110 Medications Current Medications Medications (Trade) Dose Ordered Sig/Ashlyn Route PRN Reason Start Time Stop Time Status Last Admin Dose Admin Acetaminophen (Tylenol) 650 mg Q4H PRN ORAL Mild Pain (Pain Scale 1-3) 06/18/18 16:15 07/18/18 16:14 Barium Sulfate (Readi-Cat 2) 450 ml NOW PRN ORAL Radiology Procedure 06/18/18 17:15 06/20/18 17:02 Ceftriaxone Sodium 1 gm/ Dextrose 55 ml @ 110 mls/hr DAILY IVPB 06/19/18 09:00 06/26/18 08:59 06/19/18 09:06 Dextrose (Dextrose 50%) 25 ml Q30M PRN IV Hypoglycemia 06/18/18 16:15 07/18/18 16:14 Dextrose (Dextrose 50%) 50 ml Q30M PRN IV Hypoglycemia 06/18/18 16:15 07/18/18 16:14 Dextrose/ Electrolytes 1,000 ml @ 75 mls/hr [id number] IV 06/18/18 17:00 07/18/18 16:59 06/19/18 06:08 Enoxaparin Sodium (Lovenox) 40 mg Q24H SUBQ 06/18/18 17:00 07/18/18 16:59 Famotidine (Pepcid) 20 mg BID ORAL 06/18/18 18:00 07/18/18 17:59 06/19/18 09:06 Gabapentin (Neurontin) 100 mg THREE TIMES A DAY ORAL 06/18/18 18:00 07/18/18 17:59 06/19/18 14:01 Iopamidol (Isovue-300 100ml) 100 ml NOW PRN INJ Radiology Procedure 06/18/18 17:15 06/20/18 17:14 Levothyroxine Sodium (Synthroid) 75 mcg DAILY@0630 ORAL 06/19/18 06:30 07/19/18 06:29 06/19/18 06:08 Metronidazole 100 ml @ 100 mls/hr Q8H IVPB 06/18/18 18:00 06/25/18 17:59 06/19/18 10:34 Morphine Sulfate (Morphine Sulfate) 0.5 mg Q6H PRN IVP For Pain 06/18/18 17:00 06/25/18 16:59 06/18/18 20:18 Ondansetron HCl (Zofran) 4 mg Q6H PRN IVP Nausea & Vomiting 06/18/18 16:15 07/18/18 16:14 Assessment/Plan Problem List: (1) Intractable pain Assessment & Plan: CT reviewed labs okay exam fairly benign states improving symptoms resolving hx appendectomy no acute surgical intervention planned okay for diet activity as tolerated can f/u as outpatient for biliary dyskinesia thank you will follow with recs ICD Codes: R52 - Pain, unspecified SNOMED: [id number] Status: stable Barron Rodriguez Jun 19, 2018 14:21
--- NOTE | 2018-06-19 14:50 | Diagnostic Imaging Report ---
Indications: 43-year-old female with abdominal pain Technique: IV administration 5.5 mCi 99 M technetium Choletec. Serial images obtained over the abdomen for one hour Comparison: None Findings: Prompt tracer uptake within the liver. Extrahepatic bile ducts are seen at for minutes. Excretion into the duodenum demonstrated at 52 minutes. Gallbladder visualized at 7 minutes. Impression: Negative
[2018-06-19] MEDS: Morphine Sulfate 2mg/ml Inj IVP PRN (14:56)
[2018-06-19 16:00] VITALS: BP 135/79
[2018-06-19] MEDS: Enoxaparin 40mg Inj SUBQ SCH (17:42)
--- NOTE | 2018-06-19 18:08 | General Progress Note ---
Assessment/Plan Assessment/Plan GI CONSULT Dictated Assessment - vague h/o "biliary dyskinesia" - basis unclear. HIDA ordered ---> negative - current presentation more consistent with simple gastroenteritis Recommendations - PO diet - d/c planning - Outpatient f/u Thank you Nik Sena MD Subjective Allergies: Coded Allergies: No Known Allergies (Unverified , 06/18/18) Objective Last 24 Hour Vital Signs Date Time Temp Pulse Resp B/P (MAP) Pulse Ox O2 Delivery O2 Flow Rate FiO2 06/19/18 16:00 97.8 78 18 135/79 (97) 99 06/19/18 15:26 98.5 06/19/18 12:00 98.5 66 20 97/65 (76) 96 06/19/18 09:00 Room Air 06/19/18 08:00 98.1 60 20 94/60 (71) 98 06/19/18 04:00 98.4 62 16 97/56 (70) 98 06/19/18 00:00 98.6 64 20 96/54 (68) 95 06/18/18 21:00 Room Air 06/18/18 20:00 99.2 64 18 104/64 (77) 96 Intake and Output 06/18/18 06/19/18 19:00 07:00 Intake Total 195 ml 775 ml Balance 195 ml 775 ml Intake Oral 120 ml IV Total 75 ml 775 ml # Voids 1 2 Laboratory Tests 06/19/18 05:15: White Blood Count 6.7, Red Blood Count 4.01L, Hemoglobin 12.9, Hematocrit 36.8L , Mean Corpuscular Volume 92, Mean Corpuscular Hemoglobin 32.3H, Mean Corpuscular Hemoglobin Concent 35.1, Red Cell Distribution Width 10.7L, Platelet Count 261, Mean Platelet Volume 7.7, Neutrophils (%) (Auto) 55.4, Lymphocytes (%) (Auto) 32.9, Monocytes (%) (Auto) 9.4, Eosinophils (%) (Auto) 1.6, Basophils (%) (Auto) 0.7, Sodium Level 140, Potassium Level 3.9, Chloride Level 107, Carbon Dioxide Level 26, Anion Gap 7, Blood Urea Nitrogen 9, Creatinine 0.8, Estimat Glomerular Filtration Rate > 60, Glucose Level 89, Calcium Level 8.3L Height (Feet): 5 Height (Inches): 0.00 Weight (Pounds): 110 Nik Sena MD Jun 19, 2018 18:08
[2018-06-19 20:28] VITALS: BP 98/59
--- NOTE | 2018-06-19 21:15 | Consultation ---
DATE OF CONSULTATION: 06/19/2018 GASTROENTEROLOGY CONSULTATION CONSULTING PHYSICIAN: Nik Sena M.D. REFERRING PHYSICIAN: 1. Lex Velásquez M.D. 2. Ten Tovar M.D. CHIEF COMPLAINT: I was asked to see this patient by Dr. Lex Velásquez and Dr. Ten Tvoar for evaluation of abdominal issues. HISTORY OF PRESENT ILLNESS: The patient is a pleasant 43-year-old [place] woman who comes in to the hospital with 3-day history of abdominal pain and nausea, but no vomiting and some loose stools. The patient given the history of biliary dyskinesia which dates back to about 6 years ago and was back at this time. The basis of this diagnosis is unclear, but the patient states that she has been actually relatively symptom-free. She was previously on ursodiol for treatment of this condition, but she has been off of it for some time. She had a CAT scan in the emergency room which was unrevealing. She is tolerating her clear liquid diet. PAST MEDICAL HISTORY: History of gallbladder dyskinesia per the patient's report, hypothyroidism, neuropathy for which she is on Neurontin. FAMILY HISTORY: Noncontributory. SOCIAL HISTORY: The patient is . She has one son. She does not smoke or drink alcohol. REVIEW OF SYSTEMS: Otherwise negative. MEDICATIONS: See the chart list for details. PHYSICAL EXAMINATION: GENERAL: Pleasant woman, seen in her room. HEENT: Normocephalic and atraumatic. Sclerae anicteric. Oropharynx clear. NECK: Supple. CHEST: Clear to auscultation. CARDIOVASCULAR: Revealed regular rate. ABDOMEN: Soft. Good bowel sounds. There is some mild diffuse tenderness, but more so in the lower quadrant bilaterally. EXTREMITIES: Revealed no edema. LABORATORY AND DIAGNOSTIC DATA: Laboratory data and CT scan were noted. HIDA scan was ordered, which was subsequently determined to be normal. ASSESSMENT: This patient presents with abdominal pain, nausea, loose stools, and some lower abdominal tenderness for the past few days. Typically, the presentation is consistent with viral gastroenteritis. There are no CT findings or laboratory manifestations of any other significant disorder. If so, then management will be conservative and she should recover uneventfully. The diagnosis of the biliary dyskinesia is unclear to me as the patient does not give history of proper workup to make the diagnosis. Nonetheless at this point, that issue is not active and the patient can be followed as an outpatient for it. RECOMMENDATIONS: 1. Advance to oral diet. 2. IV hydration. 3. Follow symptoms. 4. Discharge planning. Thank you for asking me to participate in the care of this patient. Nik Sena M.D. DR: Isaac JOB#: [id number] CC: ESTEFANIA
[2018-06-20] VITALS: BP 94/55
[2018-06-20 04:00] VITALS: BP 98/58
[2018-06-20 08:00] VITALS: BP 102/64
--- NOTE | 2018-06-20 08:35 | Nephrology Progress Note ---
Assessment/Plan Assessment/Plan A/P 1) Abd Pain- resolved. Likely viral; - poss gastroenteritis, CT ABD/HIDA negative - DC patient today 2. UTI- Abx per ID at DC today 3. Hypothyroid- synthroid 4. DVT Prophylaxsis- lovenox 5. Cervical Mass- patient has FOLLOW UP REP appt on Subjective Date patient seen: Jun 20, 2018 Time patient seen: 08:33 ROS Limited/Unobtainable: No Allergies: Coded Allergies: No Known Allergies (Unverified , 06/18/18) Subjective Patient feeling much better. Abdominal pain resolved and patient eating well Objective Last 24 Hour Vital Signs Date Time Temp Pulse Resp B/P (MAP) Pulse Ox O2 Delivery O2 Flow Rate FiO2 06/20/18 04:00 98.3 64 20 98/58 (71) 98 06/20/18 00:00 98.9 63 20 94/55 (68) 98 06/19/18 21:00 Room Air 06/19/18 20:28 98.4 68 19 98/59 (72) 94 19 06/19/18 16:00 97.8 78 18 135/79 (97) 99 06/19/18 15:26 98.5 06/19/18 12:00 98.5 66 20 97/65 (76) 96 06/19/18 09:00 Room Air Intake and Output 06/19/18 06/20/18 19:00 07:00 Intake Total 75 ml 895 ml Balance 75 ml 895 ml Intake Oral 120 ml IV Total 75 ml 775 ml # Voids 4 Height (Feet): 5 Height (Inches): 0.00 Weight (Pounds): 110 General Appearance: no apparent distress, alert EENT: normal ENT inspection Neck: normal alignment, supple Cardiovascular: normal rate, regular rhythm Respiratory/Chest: lungs clear, normal breath sounds Abdomen: non tender, soft Edema: no edema noted Arm (L), no edema noted Arm (R), no edema noted Leg (L), no edema noted Leg (R), no edema noted Pedal (L), no edema noted Pedal (R), no edema noted Generalized Ten Tovar MD Jun 20, 2018 08:35
--- NOTE | 2018-06-20 08:37 | Discharge Instructions ---
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 Ten Tovar MD Jun 20, 2018 08:37
[2018-06-20] MEDS: cefTRIAXone 1 GM in D5W 55 ML IVPB SCH (09:56)
--- NOTE | 2018-06-20 10:11 | Infectious Diseases Prog Note ---
Assessment/Plan Assessment/Plan ASSESSMENT: Abdominal pain x3 days [employer] ? etiology Mild to moderate abdominal pain in all four quadrants, mostly on the right lower quadrant CT scan of the abdomen with IV/oral contrast for better evaluation : no definite source of infection HIDA : neg Abd CT Wo Contrast: no definite acute abnormality Pyuria, no dysuria. UTI is less likely Urine culture "mixed growth : contaminant GB dyskinesia Hypothyroidism. Right shoulder pain ( on Neurontin) Hx of appendectomy PLAN: DC IV Rocephin and Flagyl d# 3 Monitor blood culture Monitor CBC/CMP. Subjective Allergies: Coded Allergies: No Known Allergies (Unverified , 06/18/18) Subjective Afebrile DC planning Objective Vital Signs Last 24 Hour Vital Signs Date Time Temp Pulse Resp B/P (MAP) Pulse Ox O2 Delivery O2 Flow Rate FiO2 06/20/18 08:00 98.7 71 19 102/64 (77) 98 06/20/18 04:00 98.3 64 20 98/58 (71) 98 06/20/18 00:00 98.9 63 20 94/55 (68) 98 06/19/18 21:00 Room Air 06/19/18 20:28 98.4 68 19 98/59 (72) 94 19 06/19/18 16:00 97.8 78 18 135/79 (97) 99 06/19/18 15:26 98.5 06/19/18 12:00 98.5 66 20 97/65 (76) 96 Height (Feet): 5 Height (Inches): 0.00 Weight (Pounds): 110 HEENT: atraumatic Respiratory/Chest: no respiratory distress Cardiovascular: regularly irregular Abdomen: no organomegaly Microbiology Date/Time Source Procedure Growth Status 06/18/18 17:40 Blood Blood Culture - Preliminary NO GROWTH AFTER 24 HOURS Resulted 06/18/18 17:25 Blood Blood Culture - Preliminary NO GROWTH AFTER 24 HOURS Resulted 06/18/18 14:30 Nasal Nares Influenza Types A,B Antigen (JOSH) - Final Complete 06/18/18 13:26 Urine,Clean Catch Urine Culture - Final Mixed Urogenital Contaminants Complete Laboratory Tests Test 06/20/18 08:58 Stool Occult Blood Pending Current Medications Medications (Trade) Dose Ordered Sig/Ashlyn Route PRN Reason Start Time Stop Time Status Last Admin Dose Admin Acetaminophen (Tylenol) 650 mg Q4H PRN ORAL Mild Pain (Pain Scale 1-3) 06/18/18 16:15 07/18/18 16:14 Barium Sulfate (Readi-Cat 2) 450 ml NOW PRN ORAL Radiology Procedure 06/18/18 17:15 06/20/18 17:02 Ceftriaxone Sodium 1 gm/ Dextrose 55 ml @ 110 mls/hr DAILY IVPB 06/19/18 09:00 06/26/18 08:59 06/20/18 09:56 Dextrose (Dextrose 50%) 25 ml Q30M PRN IV Hypoglycemia 06/18/18 16:15 07/18/18 16:14 Dextrose (Dextrose 50%) 50 ml Q30M PRN IV Hypoglycemia 06/18/18 16:15 07/18/18 16:14 Dextrose/ Electrolytes 1,000 ml @ 75 mls/hr [id number] IV 06/18/18 17:00 07/18/18 16:59 06/19/18 21:18 Enoxaparin Sodium (Lovenox) 40 mg Q24H SUBQ 06/18/18 17:00 07/18/18 16:59 06/19/18 17:42 Famotidine (Pepcid) 20 mg BID ORAL 06/18/18 18:00 07/18/18 17:59 06/20/18 08:54 Gabapentin (Neurontin) 100 mg THREE TIMES A DAY ORAL 06/18/18 18:00 07/18/18 17:59 06/20/18 08:54 Iopamidol (Isovue-300 100ml) 100 ml NOW PRN INJ Radiology Procedure 06/18/18 17:15 06/20/18 17:14 Levothyroxine Sodium (Synthroid) 75 mcg DAILY@0630 ORAL 06/19/18 06:30 07/19/18 06:29 06/20/18 06:13 Metronidazole 100 ml @ 100 mls/hr Q8H IVPB 06/18/18 18:00 06/25/18 17:59 06/20/18 09:56 Morphine Sulfate (Morphine Sulfate) 0.5 mg Q6H PRN IVP For Pain 06/18/18 17:00 06/25/18 16:59 06/19/18 14:56 Ondansetron HCl (Zofran) 4 mg Q6H PRN IVP Nausea & Vomiting 06/18/18 16:15 07/18/18 16:14 Galen Cunningham MD Jun 20, 2018 10:11
--- NOTE | 2018-06-20 10:13 | General Surgery Progress Note ---
General Surgery-Progress Note Subjective Symptoms: improved, pain absent, tolerating diet, passing flatus Additional Comments HIDA negative. pain resolved.. no n/v/f/c. Objective Last 24 Hour Vital Signs Date Time Temp Pulse Resp B/P (MAP) Pulse Ox O2 Delivery O2 Flow Rate FiO2 06/20/18 08:00 98.7 71 19 102/64 (77) 98 06/20/18 04:00 98.3 64 20 98/58 (71) 98 06/20/18 00:00 98.9 63 20 94/55 (68) 98 06/19/18 21:00 Room Air 06/19/18 20:28 98.4 68 19 98/59 (72) 94 19 06/19/18 16:00 97.8 78 18 135/79 (97) 99 06/19/18 15:26 98.5 06/19/18 12:00 98.5 66 20 97/65 (76) 96 I&O Intake and Output 06/19/18 06/20/18 19:00 07:00 Intake Total 75 ml 895 ml Balance 75 ml 895 ml Intake Oral 120 ml IV Total 75 ml 775 ml # Voids 4 Drains: none Cardiovascular: RSR Respiratory: clear Abdomen: soft, flat, non-tender, present bowel sounds Extremities: no tenderness, no cyanosis Laboratory Tests Test 06/20/18 08:58 Stool Occult Blood Pending Plan Problems: (1) Intractable pain Assessment & Plan: CT reviewed labs okay exam fairly benign states improving symptoms resolving hx appendectomy HIDA negative no acute surgical intervention planned okay for diet activity as tolerated can f/u as outpatient for biliary dyskinesia okay to d/c home from surgical standpoint thank you will follow with Barron Marshall Jun 20, 2018 10:13
[2018-06-20 12:00] VITALS: BP 103/65
--- NOTE | 2018-06-20 17:28 | General Progress Note ---
Assessment/Plan Assessment/Plan Assessment - vague h/o "biliary dyskinesia" - basis unclear. HIDA ordered ---> negative - current presentation more consistent with simple gastroenteritis Recommendations - PO diet - d/c planning - Outpatient f/u Subjective Allergies: Coded Allergies: No Known Allergies (Unverified , 06/18/18) Subjective feels better for discharge today d/w patient re results Objective Last 24 Hour Vital Signs Date Time Temp Pulse Resp B/P (MAP) Pulse Ox O2 Delivery O2 Flow Rate FiO2 06/20/18 12:00 98.3 70 18 103/65 (78) 97 06/20/18 09:00 Room Air 06/20/18 08:00 98.7 71 19 102/64 (77) 98 06/20/18 04:00 98.3 64 20 98/58 (71) 98 06/20/18 00:00 98.9 63 20 94/55 (68) 98 06/19/18 21:00 Room Air 06/19/18 20:28 98.4 68 19 98/59 (72) 94 19 Intake and Output 06/19/18 06/20/18 19:00 07:00 Intake Total 75 ml 895 ml Balance 75 ml 895 ml Intake Oral 120 ml IV Total 75 ml 775 ml # Voids 4 Laboratory Tests 06/20/18 08:58: Stool Occult Blood Negative Height (Feet): 5 Height (Inches): 0.00 Weight (Pounds): 110 Objective WDWN NCAT supple CTA RRR Abd soft no edema non focal Nik Sena MD Jun 20, 2018 17:28
--- NOTE | 2018-06-23 08:36 | Discharge Summary ---
Discharge Summary Discharge Summary _ DATE OF ADMISSION: 06/18/2018 DATE OF DISCHARGE: 06/20/2018 REASON FOR ADMISSION: 43 years old female with past medical history of gallbladder dyskinesia, hypothyroidism, neuropathy, presented to emergency room complaining of 3 days of nausea ,abdominal pain ,diarrhea, but no vomiting. Patient had been on Ursodiol, but discontinued this medication about one year ago. She had abdominal pain like this , about 2 years ago. She denied chest pain or shortness of breath. She denied blood in stool or dark stools. No fevers, no chills. Upon evaluation vital signs were stable. Laboratory workup was unremarkable . Stable LFT, lipase . Potassium 3.4 Urinalysis revealed pyuria and occasional yeast. CT of the abdomen without contrast demonstrated enlarged fibroid uterus , otherwise no definite acute abnormalities. Patient admitted with diagnoses of intractable abdominal pain, history of gallbladder dyskinesia, hypothyroidism, neuropathy, probably urinary tract infection with yeast. CONSULTANTS: ID specialist Dr. Cunningham GI specialist surgery Dr. Rodriguez HOSPITAL COURSE: Patient admitted to medical surgical floor. Patient was initially kept nothing by mouth and started on IV fluids. GI and surgery consults were requested. GI specialist seen and evaluated patient. CT of the abdomen and pelvis was repeated with contrast. It demonstrated fibroid uterus previously reported , prominent cervix- per ultrasound report described as a possible cervical mass. GI specialist personally reviewed CT of the abdomen and pelvis and conclude that there were no findings or laboratory manifestation of significant disorder. Per GI specialist, presentation was mostly consistent with viral gastroenteritis. However due to vague history of biliary dyskinesia, HIDA scan was ordered, which was negative. Patient slowly started on diet and was advanced as tolerated. GI prophylaxis provided. Stool for occult blood was negative. Symptomatic care provided. GI recommended outpatient follow-up for workup of biliary dyskinesia. Surgeon closely followed . Abdominal exam was fairly benign. Patient was clinically improving with symptomatic treatment. Surgeon concluded that no acute surgical intervention was necessary at this time. Patient initially started on empiric antibiotics . ID consult was requested for further management of possible UTI. Urine culture revealed mixed urogenital contaminants. Influenza screen was negative. Blood culture were negative. Stool culture and stool for C. difficile were all negative. Antibiotic stopped as per ID recommendations . DVT and GI prophylaxis provided. Synthroid was continued. Potassium replaced and remained stable afterwards. Surgeon in GI specialist cleared patient for discharge Patient clinically improved and was stable for discharge home. FINAL DIAGNOSES: Likely viral gastroenteritis Intractable abdominal pain, probably due to gastroenteritis- resolved Hypothyroidism Biliary dyskinesia Cervical mass DISCHARGE MEDICATIONS: See Medication Reconciliation list. DISCHARGE INSTRUCTIONS: Patient was discharged home . Outpatient follow-up with GI for workup for biliary dyskinesia . Outpatient follow-up with [employer] TECHNICIAN speciaslit for cervical muscle appointment set up for 06/24. I have been assigned to dictate discharge summary for this account. I was not involved in the patient's management. Aniya Toledo NP Jun 23, 2018 08:36
== END 2018-06-20 14:30 | disposition home or self-care (01) | DRG 249 ==
LOC: EMR 12:45 → 3E 14:13 → EDBEDREQ 15:14
DX: A08.4 Viral intestinal infection, unspecified (principal); G62.9 Polyneuropathy, unspecified; E03.9 Hypothyroidism, unspecified; K82.8 Other specified diseases of gallbladder; N88.8 Other specified noninflammatory disorders of cervix uteri; N39.0 Urinary tract infection, site not specified
CPT/HCPCS: 36415; 74176; 74177; 78266; 80048; 80053; 81003; 81025; 82270; 83690; 85025; 86710; 87040; 87045; 87086; 87324; 96361; 96365; 96375; 99285; J2405; J2765